=== PATIENT | female | born 1965 | race Caucasian/White ===

== ENCOUNTER → 2023-11-08 | Outpatient (CLI) | payer OTHER ==
--- NOTE | 2023-11-08 09:37 | US ---
EXAMINATION TYPE: US abdomen complete DATE OF EXAM: 11/08/2023 COMPARISON: NONE CLINICAL INDICATION: Female, 58 years old with history of R10.84 GENERALIZED ABDOMINAL PAIN; pain gb removed . TECHNIQUE: Multiple sonographic images of the abdomen are obtained. FINDINGS: EXAM MEASUREMENTS: Liver Length: 20.2 cm Gallbladder Wall: Surgically absent CBD: .4 cm Spleen: 9.8 cm Right Kidney: 10.7 x 3.7 x 4.9 cm Left Kidney: 12.3 x 4.7 x 5.2 cm LEGAL PRACTICE MANAGER NOTES: Pancreas: Tail obscured by overlying bowel gas Liver: Increased attenuation hepatomegaly Gallbladder: Surgically absent CBD: wnl Spleen: Calcifications seen. Right Kidney: No hydronephrosis or masses seen Left Kidney: No hydronephrosis or masses seen Upper IVC: wnl Abd Aorta: wnl The liver is enlarged with diffusely increased echogenicity. This appears limits evaluation. No focal lesion identified within limitations. The intrahepatic portion of the IVC and proximal abdominal aor ta are within normal limits. The gallbladder is surgically absent. Common bile duct is unremarkable. The visualized portions of the pancreas are homogenous. The spleen is normal in size with punctate echogenic foci consistent with calcified granulomas. Kidneys are symmetric and free of hydronephros is. No renal lesions are seen. IMPRESSION: 1. Hepatomegaly with hepatic steatosis. 2. Post cholecystectomy changes.
== END | disposition home or self-care (01) ==
LOC: RADUSWWP 08:01
PROVIDERS: ATTEND Family Medicine
DX: K76.0 Fatty (change of) liver, not elsewhere classified (principal); R16.0 Hepatomegaly, not elsewhere classified; Z90.49 Acquired absence of other specified parts of digestive tract
CPT/HCPCS: 76700

== ENCOUNTER → 2023-12-05 | Outpatient (CLI) | payer OTHER ==
--- NOTE | 2023-12-22 12:47 | MM ---
Reason for Exam: Screening (asymptomatic). Last mammogram was performed 12 year(s) and 1 month(s) ago. Patient History: Menarche at age 13. First Full-Term at age 20. Hysterectomy at age 32. Risk Values: Divya 5 year model risk: 1.2%. NCI Lifetime model risk: 6.9%. Prior Study Comparison: 08/23/2006 Bilateral Screening Mammogram, [facility]. 11/02/2011 Bilateral Screening Mammogram, [facility]. Tissue Density: There are scattered areas of fibroglandular density. Findings: Analyzed By CAD. Right breast: There is no suspicious group of microcalcifications or new suspicious mass. Left breast: There is no suspicious group of microcalcifications or new suspicious mass. Overall Assessment: Negative, BI-RAD 1 Management: Screening Mammogram of both breasts in [address] [facility] will attempt to contact patient to return for supplemental views and ultrasound if indicated. Patient should continue monthly self-breast exams. A clinical breast exam by your physician is recommended on an annual basis. This exam should not preclude additional follow-up of suspicious palpable abnormalities. Note on Divya scores and lifetime risk: 1. A Divya score greater than 3% is considered moderate risk. If this is the case, consider specialist referral to assess eligibility for a risk reducing agent. 2. If overall lifetime risk for the development of breast cancer is 20% or higher, the patient may qualify for future screening with alternating mammogram and breast MRI. Electronically signed and approved by: Maykel Grande DO
== END | disposition home or self-care (01) ==
LOC: RADMAMWWP 10:40
PROVIDERS: ATTEND Family Medicine
DX: Z12.31 Encounter for screening mammogram for malignant neoplasm of breast (principal); R92.323 Mammographic fibroglandular density, bilateral breasts
CPT/HCPCS: 77063; 77067